=== PATIENT | female | born 1945 | race Caucasian/White ===

== ENCOUNTER → 2017-12-03 | Outpatient (CLI) | payer MEDICARE, OTHER ==
--- NOTE | 2017-12-04 12:01 | KCIC ---
MRI of the Brain without Contrast 12/03/2017 Clinical History: Memory loss with increasing forgetfulness. Technique: Unenhanced T1-weighted sagittal and axial, T2-weighted axial and coronal and FLAIR, gradient echo and diffusion-weighted axial images of the brain were obtained. Findings: No previous studies are available for comparison. Some of the images are degraded by patient motion. There is generalized parenchymal atrophy. Patchy and multiple small focal areas of abnormally increased signal intensity are seen within the periventricular and subcortical white matter of both cerebral hemispheres on the FLAIR and T2-weighted images consistent with areas of small vessel ischemic disease. 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 This measures 1.9 cm in greatest diameter. There is no associated mass effect. No acute parenchymal abnormality is seen. No extra-axial fluid collection is seen. There is no MRI evidence of acute ischemia/infarction. Mild mucosal thickening is scattered throughout the paranasal sinuses. Normal flow voids are seen within the major vascular structures surrounding the brain parenchyma. Impression: No acute parenchymal abnormality is seen. Electronically signed by: Nav Gandhi MD (12/04/2017 11:57 AM) [id number]
== END | disposition home or self-care (01) ==
LOC: KCIC MRI 17:13
PROVIDERS: ATTEND Nurse Practitioner Gerontology
DX: J34.89 Other specified disorders of nose and nasal sinuses (principal)
CPT/HCPCS: 70551

== ENCOUNTER → 2018-05-20 | Outpatient (CLI) | payer MEDICARE, OTHER ==
--- NOTE | 2018-05-20 14:20 | RAD ---
EXAM: PET/CT SKULL BASE TO MID THIGH. HISTORY: History of colon carcinoma, lymphadenopathy. COMPARISON: CT neck 08/23/2009, CT abdomen 10/29/2007. TECHNIQUE: CT was performed from the skull base through the mid thighs for the purposes of attenuation correction. 14.0 mCi F-18 fluorodeoxyglucose (FDG) was administered intravenously. After an uptake period, positron emission tomography was performed from the skull base through the mid thighs. The PET and CT data were fused and interpreted in combination a dedicated workstation. Blood glucose level was 114 mg/dL at the time of FDG administration. FINDINGS: Head and neck: There is a 1.4 cm hypermetabolic soft tissue mass in the posterior left parotid demonstrate a maximum SUV of 9.8. No hypermetabolic lymphadenopathy in this region. Chest: No hypermetabolic mass or lymphadenopathy in this region. Abdomen and pelvis: There is physiologic uptake in both kidneys with excretion into the urinary bladder. No suspicious hypermetabolic mass or lymphadenopathy in this region. Osseous structures: No suspicious hypermetabolic osseous lesion. Uncorrected PET images: No additional suspicious abnormality. Low-dose CT images: Simple cyst in hepatic segment 2. Cholecystectomy. There is a hyperdense lesion in the inferior pole right kidney and posterior interpolar left kidney most consistent with hemorrhagic cysts. Hysterectomy with the vaginal cuff unremarkable. Impression: 1. 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 Lesion could be biopsied by ultrasound, if clinically indicated. 2. Otherwise, no hypermetabolic metastatic disease in the neck, chest, abdomen or pelvis.
== END | disposition home or self-care (01) ==
LOC: PETSC 10:03
PROVIDERS: ATTEND Physician Assistant Surgical
DX: R22.1 Localized swelling, mass and lump, neck (principal); N28.1 Cyst of kidney, acquired; Z85.038 Personal history of other malignant neoplasm of large intestine; Z90.49 Acquired absence of other specified parts of digestive tract; Z90.710 Acquired absence of both cervix and uterus
CPT/HCPCS: 78815; A9552

== ENCOUNTER 2018-06-11 06:56 | Outpatient (CLI) | payer MEDICARE, OTHER ==
[~2018-06-11] VITALS: Ht 154.9 cm; Wt 68.9 kg
[2018-06-11 07:14] LABS: BASO % 0 % (0-3); EOS # 0.1 x10^3/uL (0.0-0.7); EOS % 1 % (0-3); HEMATOCRIT 38.8 % (36.0-47.0); HEMOGLOBIN 12.2 g/dL (12.0-15.5); LYMPH # 1.2 x10^3/uL (1.0-4.8); LYMPH % 20 % (24-48); MEAN CORPUSCULAR HEMOGLOBIN 25 pg (25-35); MEAN CORPUSCULAR HGB CONC 31 g/dL (31-37); MEAN CORPUSCULAR VOLUME 80 fL (79-100); MONO # 0.5 x10^3/uL (0.0-1.1); MONO % 9 % (0-9); NEUT # 4.1 x10^3uL (1.8-7.7); NEUT % 69 % (31-73); PLATELET COUNT 303 x10^3/uL (140-400); RED BLOOD COUNT 4.87 x10^6/uL (3.50-5.40); RED CELL DISTRIBUTION WIDTH 18.9 % (11.5-14.5)
[2018-06-11] MEDS ORDERED: DILT240C2 PO (07:19)
[2018-06-11] MEDS ORDERED: CALC-450 PO (07:19)
[2018-06-11] MEDS ORDERED: CRESTOR10 MG PO (07:19)
[2018-06-11 07:28] LABS: PROTHROMBIN TIME PATIENT 12.4 SEC (11.7-14.0)
[2018-06-11 07:57] VITALS: BP 136/85
[2018-06-11] MEDS ORDERED: LIDOCAINE WITH 8.4% SOD BICARB 3 ML DISP.SYRIN. ONE (08:49)
[2018-06-11 09:23] VITALS: BP 145/89
[2018-06-11] MEDS ORDERED: LIDOCAINE WITH 8.4% SOD BICARB 3 ML DISP.SYRIN. IJ ONE (09:30)
[2018-06-11 09:56] VITALS: BP 154/77
--- NOTE | 2018-06-11 10:00 | NUR ---
bandaide on left jaw site is clean and dry. no new swelling to site. pt A&O x 3. denies pain at this time. d/c instructions given and questions answered. pt ambulated out to vehicle accompanied by her brother.
--- NOTE | 2018-06-11 10:02 | RAD ---
Procedure: Ultrasound-guided fine-needle aspiration and core biopsy of the left parotid gland mass Clinical Indication: 73-year-old with history of colon cancer, newly discovered left parotid gland mass on PET/CT scan. Sedation: Local anesthesia only Antibiotics: None Sterility: The procedure was performed in its entirety using appropriate elements of sterile technique. Consent: The procedure was explained in its entirety to the patient or the patients designated administrative representative by a member of the treatment team, including a discussion of the risks, benefits and commonly accepted alternatives to the procedure, as well as the expected consequences of no therapy whatsoever. Discussion of the risks included, but was not limited to, those that are most frequent and those that are rare but possibly severe or life-threatening, as well as the possibility of unforeseen complications. Technique and Findings: Following informed consent, the patient was prepped and draped in usual sterile fashion. Ultrasound interrogation of the left parotid gland revealed a circumscribed heterogeneous hypoechoic mass. 1% lidocaine was used to achieve local anesthesia. Under ultrasound guidance, a 25-gauge needle was advanced into the mass and fine-needle aspiration was performed. Hardcopy ultrasound images were recorded. The specimen was then prepared by the on-site clinical lab technologist. This was repeated 2 additional times for a total of 3 fine-needle passes. A single 20-gauge core biopsy specimen was then obtained and preserved in formalin. Hemostasis was achieved with manual compression. Complications: No immediate Impression: 1. Ultrasound-guided biopsy of a left parotid gland mass as described.
--- NOTE | 2018-06-15 11:11 | PATHOLOGY ---
Note [facility] Accession Number: [id number] TESTS RESULT FLAG UNITS REF RANGE LAB Clinician Provided Cytology Information No. of containers..01 Other (Miscellaneous) Source: LEFT PAROTID MASS DIAGNOSIS: 02 LEFT PAROTID MASS NEGATIVE FOR MALIGNANT CELLS. SCANT CELLULARITY. SEVERAL CLUSTERS OF BENIGN DUCTAL EPITHELIAL CELLS ARE PRESENT. THIS INTERPRETATION INCLUDES EVALUATION OF A CELL BLOCK. Signed out by: Eddie Enrique MD, Pathologist NPI- [id number] Performed by: Pablo Corbin, Electronic Sales And Service Technician ([facility]) Gross description: 01 55ML, DARK RED, CLOUDY /LCS FLAG LEGEND: L-Low Normal,H-High Normal,LL-Alert Low,HH-Alert High <-Panic Low,>-Panic High,A-Abnormal,AA-Critical Abnormal Performed at: [facility] [address] [place] [address] Steve Wellington MD, 02 [facility] [address] [place] [address] Eddie Enrique MD, Specimen Comment: A courtesy copy of this report has been sent to Specimen Comment: [phone]. Specimen Comment: [id number] Specimen Comment: Report sent to Specimen Comment: A duplicate report has been generated due to demographic updates. Performed at: [address] [place], [place] [address] [address], [place], [place] [id number] MD Steve Wellington MD Phone: [phone]
--- NOTE | 2018-06-15 16:07 | PATHOLOGY ---
[facility] Accession Number: [id number] . 01 Material submitted: . LEFT PAROTID MASS BIOPSY . 01 Clinical history: . Left parotid mass . 02 Diagnosis: Left parotid mass, needle biopsy: - Low-grade parotid (salivary gland) neoplasm. See comment. (JPM:haydee; 06/15/2018) QMS/06/15/2018 . 02 Comment: Sections of the left parotid mass needle biopsy reveal skin, blood clot, and a few small segments of a low-grade parotid salivary gland neoplasm. The latter consists predominantly of nests and anastomosing trabeculae of bland-appearing epithelial cells. The accompanying stroma focally has a myxoid appearance. 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 However, the amount of tumor in the biopsy is small and may not be route sales representative of the entire lesion. Correlate clinically. The case is also examined by Dr. Sandoval, who concurs with the diagnosis. (JPM:haydee; 06/15/2018) . 02 Electronically signed: . Eddie Enrique MD, Pathologist NPI- [id number] . 01 Gross description: . The specimen is received in formalin, labeled "Kota, Sharri, left parotid, BX", consists of a mackey-white needle core measuring 1.7 cm in length and less than 0.1 cm diameter. The specimen is entirely submitted in A1. ([facility]; 06/11/2018) SHS/SHS . 02 Pathologist provided ICD-10: D11.0 . 02 CPT . 163266 Specimen Comment: A courtesy copy of this report has been sent to Specimen Comment: [phone], , . Specimen Comment: Report sent to ,DR PIERCE / DR LEMUS Specimen Comment: A duplicate report has been generated due to demographic updates. Performed at: 01 [facility] [address], [place] [id number] MD Steve Wellington MD Phone: [phone] Performed at: 02 [facility] [address] [place], [place] [id number] MD Eddie Enrique MD Phone: [phone]
== END 2018-06-11 10:05 | disposition home or self-care (01) ==
LOC: INTRAD 06:56
PROVIDERS: ATTEND Physician Assistant Surgical
DX: D11.0 Benign neoplasm of parotid gland (principal); Z88.1 Allergy status to other antibiotic agents; Z85.038 Personal history of other malignant neoplasm of large intestine; I10 Essential (primary) hypertension; E78.5 Hyperlipidemia, unspecified; M15.0 Primary generalized (osteo)arthritis; E11.9 Type 2 diabetes mellitus without complications; I45.9 Conduction disorder, unspecified; E66.9 Obesity, unspecified; Z68.33 Body mass index [BMI] 33.0-33.9, adult; Z79.84 Long term (current) use of oral hypoglycemic drugs; Z79.899 Other long term (current) drug therapy; Z72.89 Other problems related to lifestyle; Z90.49 Acquired absence of other specified parts of digestive tract; Z90.710 Acquired absence of both cervix and uterus; Z98.890 Other specified postprocedural states; Z80.0 Family history of malignant neoplasm of digestive organs; Z80.42 Family history of malignant neoplasm of prostate
CPT/HCPCS: 10005; 36415; 42400; 76942; 85025; 85610; 88173; 88305

== ENCOUNTER → 2018-12-15 | Outpatient (CLI) | payer MEDICARE, OTHER ==
[~2018-12-15] MED LIST: CALC-450 PO; CRESTOR10 MG PO; DILT240C2 PO
--- NOTE | 2018-12-15 13:27 | KCIC ---
EXAM: Chest, 2 views. HISTORY: Bronchitis. COMPARISON: None. FINDINGS: 2 views of the chest are obtained. There is increased opacity within the right lower lobe due overlying osseous artifact. There is no consolidation, pleural effusion or pneumothorax. The heart is normal in size. IMPRESSION: No acute pulmonary finding. Electronically signed by: Seema Nagy MD (12/15/2018 1:23 PM) [id number]
== END | disposition home or self-care (01) ==
LOC: KCIC 11:58
PROVIDERS: ATTEND Family Medicine
DX: J40 Bronchitis, not specified as acute or chronic (principal); R42 Dizziness and giddiness; R05 Cough
CPT/HCPCS: 71046

== ENCOUNTER → 2019-10-12 | Outpatient (CLI) | payer MEDICARE, OTHER ==
--- NOTE | 2019-10-12 14:49 | KCIC ---
PA and lateral views of the chest. Comparison: 12/07/2018. Indication: Shortness of air for several months Findings: The heart size is enlarged but stable. No pneumothorax or effusion. No air space or interstitial disease. The bony structures are intact. Impression: 1. No acute cardiopulmonary process. Electronically signed by: Fermín Thompson MD (10/12/2019 2:46 PM) [id number]
== END | disposition home or self-care (01) ==
LOC: KCIC 12:38
PROVIDERS: ATTEND Family Medicine
DX: R06.02 Shortness of breath (principal)
CPT/HCPCS: 71046